=== PATIENT | male | born 1955 | race Caucasian/White ===

== ENCOUNTER 2019-11-23 14:43 | Emergency (ER) | payer MEDICARE, OTHER, SELFPAY ==
--- NOTE | 2019-11-23 14:51 | ED.GENADULT ---
HPI - General Adult General Chief complaint: Upper Respiratory Infection Stated complaint: upper respiratory infection Time Seen by Provider: 11/23/19 14:51 Source: patient Mode of arrival: ambulatory Limitations: no limitations History of Present Illness HPI narrative: 63-year-old male patient presents to the [facility] with complaints of pain to the right side of the face for the past 4 to 5 days. Patient states he has been having some fevers and states that he noticed some swelling to his right cheek and now is gotten worse and causing pain when he tries open his mouth. Patient states he has been doing some sinus rinses thinking it was his sinuses but continues to have worsening pain. Related Data Home Medications Medication Instructions Recorded Confirmed amlodipine [Norvasc] 5 mg PO DAILY 11/23/19 11/23/19 aspirin 81 mg PO DAILY 11/23/19 11/23/19 buspirone 10 mg PO BID 11/23/19 11/23/19 citalopram [Celexa] 20 mg PO DAILY 11/23/19 11/23/19 dulaglutide [Trulicity] 1.5 mg SUBCUT WEEKLY 11/23/19 11/23/19 losartan 100 mg PO DAILY 11/23/19 11/23/19 methylphenidate HCl [Concerta] 36 mg PO BID 11/23/19 11/23/19 metoprolol succinate [Toprol XL] 25 mg PO DAILY 11/23/19 11/23/19 omeprazole magnesium [Prilosec OTC] 20 mg PO DAILY 11/23/19 11/23/19 Allergies Allergy/AdvReac Type Severity Reaction Status Date / Time No Known Allergies Allergy Verified 11/23/19 14:59 Review of Systems Review of Systems: Narrative: CONSTITUTIONAL: Denies fever, chills, or sweats. EYES: Denies visual changes, redness, or discharge. ENT: Denies rhinorrhea, congestion, sore throat, or otalgia. Positive swelling and pain to the right cheek CARDIOVASCULAR: Denies chest pain, palpitations, or edema. RESPIRATORY: Denies cough or dyspnea. GASTROINTESTINAL: Denies abdominal pain, nausea, vomiting, or diarrhea. GENITOURINARY: Denies dysuria or hematuria. SKIN: Denies rash or itching. MUSCULOSKELETAL: Denies back pain, joint pain, or myalgia. NEUROLOGIC: Denies headache, numbness, or weakness. PSYCHIATRIC: Denies anxiety or depression. [facility] Past Medical History Medical History Arthritis CAD (coronary artery disease) Colon cancer Depression Diabetes mellitus type 2 in obese Duplicated ureter, right GERD (gastroesophageal reflux disease) HTN (hypertension) Hydroureter Myocardial infarction (~2008) Obesity ROBERT on CPAP Peripheral neuropathy B/l feet PTSD (post-traumatic stress disorder) Sepsis due to methicillin resistant Staphylococcus aureus (MRSA) Left ankle Sleep apnea Spinal stenosis Tinnitus Surgical History Surgical History H/O lateral meniscus repair of right knee (~2010) H/O vasectomy History of cardiac catheterization History of coronary artery stent placement (~2008) History of photorefractive keratectomy (~2008) Status post right hemicolectomy (03/01/19) Family History Family History Father Diabetes mellitus Hypertension Cerebrovascular accident GERD (gastroesophageal reflux disease) Mother Diabetes mellitus Hypertension Family history of malignant neoplasm of kidney b/l kidneys CAD (coronary artery disease) Other Family history of cardiovascular disease Family history of malignant neoplasm Social History Social History Social History: 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 He lives with his , Shira, whom he designates as POA/surrogate decision maker. His parents also live at home with him. His PCP is Dr. Gonzalez. He wishes to be listed as a Full Code Smoking status: Never smoker Second hand tobacco smoke exposure: No Alcohol intake: current Drinks per week: 7 Substance use: never Substance use type: does not use Other substance usage details: CBD extract Additional occupa
[2019-11-23 14:54] VITALS: BP 162/97; PULSE 89; RESP 18; TEMP 37.5; O2SAT 98
== END 2019-11-23 15:20 | disposition home or self-care (01) ==
PROVIDERS: Emergency Provider Nurse Practitioner Family; PCP Family Medicine
DX: K12.2 Cellulitis and abscess of mouth (principal); M19.90 Unspecified osteoarthritis, unspecified site; I25.10 Atherosclerotic heart disease of native coronary artery without angina pectoris; F32.9 Major depressive disorder, single episode, unspecified; K21.9 Gastro-esophageal reflux disease without esophagitis; I10 Essential (primary) hypertension; I25.2 Old myocardial infarction; G47.33 Obstructive sleep apnea (adult) (pediatric); F43.11 Post-traumatic stress disorder, acute; Z85.038 Personal history of other malignant neoplasm of large intestine; E11.42 Type 2 diabetes mellitus with diabetic polyneuropathy
CPT/HCPCS: 40800; 99213; G0463

== ENCOUNTER 2020-03-18 09:22 | Inpatient (IN) | payer MEDICARE, OTHER, SELFPAY ==
[2020-03-18] VITALS (21 sets, daily range): BP systolic 145–158; BP diastolic 80–102; PULSE 65–106; RESP 10–25; TEMP 36.5–36.9; O2SAT 93–98; BMI 30.2
--- NOTE | ~2020-03-18 | XR_ITS ---
EXAMINATION: XR chest 1V portable EXAM DATE: 03/18/2020 10:31 INDICATION: COVID +, dyspnea; hx of VA with stent placement. TECHNIQUE: Portable AP frontal chest x-ray was obtained. There is no prior study for comparison. FINDINGS: Moderate amount of patchy bilateral ill-defined airspace disease, most likely COVID-19 pneu monia given history provided. Cardiomediastinal silhouette is normal. There is no pneumothorax suspec gomez. There are no pleural effusions. There are mild bony degenerative changes. IMPRESSION: Moderate amount of bilateral acute airspace disease, clinical correlation. Reviewed, dictated and finalized at location B. [employer] [employer] [facility] IMPRESSION: Moderate amount of bilateral acute airspace disease, clinical benny elation.
--- NOTE | 2020-03-18 09:21 | ED.SOB ---
HPI - SOB/Dyspnea General Chief Complaint: Shortness of Breath/Dyspnea Stated Complaint: COVID +, SOB Source: patient and EMS Mode of arrival: EMS Limitations: no limitations History of Present Illness HPI Narrative: Patient is a 64-year-old male who presents for evaluation of cough and shortness of breath in the setting of a Covid diagnosis. Patient had positive Covid test results 03/10, with increasing shortness of breath. 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 Patient is denying chest pain, only reporting increased cough and dyspnea. Reports intermittent fever and chills. Related Data Home Medications Medication Instructions Recorded Confirmed amlodipine [Norvasc] 5 mg PO DAILY 11/23/19 11/23/19 aspirin 81 mg PO DAILY 11/23/19 11/23/19 buspirone 10 mg PO BID 11/23/19 11/23/19 citalopram [Celexa] 20 mg PO DAILY 11/23/19 11/23/19 dulaglutide [Trulicity] 1.5 mg SUBCUT WEEKLY 11/23/19 11/23/19 losartan 100 mg PO DAILY 11/23/19 11/23/19 methylphenidate HCl [Concerta] 36 mg PO BID 11/23/19 11/23/19 metoprolol succinate [Toprol XL] 25 mg PO DAILY 11/23/19 11/23/19 omeprazole magnesium [Prilosec OTC] 20 mg PO DAILY 11/23/19 11/23/19 Allergies Allergy/AdvReac Type Severity Reaction Status Date / Time No Known Allergies Allergy Verified 03/18/20 09:32 Review of Systems Review of Systems: Narrative: CONSTITUTIONAL: Reports intermittent fever and chills EYES: Denies visual changes, redness, or discharge. ENT: Denies rhinorrhea, congestion, sore throat, or otalgia. CARDIOVASCULAR: Denies chest pain, palpitations, or edema. RESPIRATORY: Reports cough and shortness of breath GASTROINTESTINAL: Denies abdominal pain, nausea, vomiting, or diarrhea. GENITOURINARY: Denies dysuria or hematuria. SKIN: Denies rash or itching. MUSCULOSKELETAL: Denies back pain, reports joint pain and myalgias NEUROLOGIC: Denies headache, numbness, or weakness. [facility] Past Medical History Medical History (Updated 03/18/20 @ 11:59 by Lala Meraz MD) Arthritis CAD (coronary artery disease) Colon cancer Depression Diabetes mellitus type 2 in obese Duplicated ureter, right GERD (gastroesophageal reflux disease) HTN (hypertension) Hydroureter Myocardial infarction (~2008) Obesity ROBERT on CPAP Peripheral neuropathy B/l feet PTSD (post-traumatic stress disorder) Sepsis due to methicillin resistant Staphylococcus aureus (MRSA) Left ankle Sleep apnea Spinal stenosis Tinnitus Surgical History Surgical History H/O lateral meniscus repair of right knee (~2010) H/O vasectomy History of cardiac catheterization History of coronary artery stent placement (~2008) History of photorefractive keratectomy (~2008) Status post right hemicolectomy (03/01/19) Family History Family History Father Diabetes mellitus Hypertension Cerebrovascular accident GERD (gastroesophageal reflux disease) Mother Diabetes mellitus Hypertension Family history of malignant neoplasm of kidney b/l kidneys CAD (coronary artery disease) Other Family history of cardiovascular disease Family history of malignant neoplasm Social History Social History Social History: 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 He lives with his , Shira, whom he designates as POA/surrogate decision maker. His parents also live at home with him. His PCP is Dr. Gonzalez. 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
--- NOTE | 2020-03-18 09:28 | ECG_ITS ---
Measurements Intervals [place] Rate: 89 P: 42 ND: 170 QRS: 5 QRSD: 146 T: 46 QT: 395 QTc: 481 Interpretive Statements SINUS RHYTHM RIGHT BUNDLE BRANCH BLOCK CONSIDER INFERIOR INFARCT, AGE INDETERMINATE ABNORMAL ECG Electronically Signed On 03-18-2020 10:24:10 DIRECTOR OF MARKET INTELLIGENCE by Mekhi Rosado D.O.
[2020-03-18 10:08] LABS: Alveolar/Arterial O2 Gradient 46.3 mmHg; Base Excess ABG -2.2 mEq/l (+/-2.0); Carboxyhemoglobin 1.9 % THb (0-2.0); Fractional Inspired Oxygen 21 %; Methemoglobin ABG 0.3 %THb (0-1.5); Oxygen Content ABG 17.9 %vol (16.0-22.0); Oxygen Saturation ABG 91.3 % (95.0-100.0); Oxyhemoglobin 89.5 % THb (90.0-100.0); PCO2 ABG 36.2 mmHg (35.0-45.0); PO2 ABG 60.1 mmHg (80.0-100.0); PO2 FiO2 Ratio Arterial Blood 2.86 %; Reduced Hemoglobin 8.3 %THb (0-5.0); Total Hemoglobin 14.2 g/dL (12.0-18.0); pH ABG 7.402 (7.350-7.450)
[2020-03-18 10:09] LABS: Device ROOM AIR; Modified Allen's Test Pass; Site Drawn LEFT RADIAL
[2020-03-18] MEDS: SODIUM CHLORIDE 0.9% IV 500 ML 999 ML IV CONT (10:14)
[2020-03-18] MEDS: ONDANSETRON INJ 4 MG/2 ML VIAL IV PUSH (10:14)
[2020-03-18 10:36] LABS: Basophils Percent Auto 0.2 % (0.2-1.2); Eosinophils Percent Auto 0.4 % (0-4.4); Hematocrit 38.3 % (42.0-52.0); Hemoglobin 13.6 g/dL (14.0-18.0); Immature Granulocyte Absolute 0.05 K/mm3 (0.00-0.031); Immature Granulocyte Percent A 0.6 % (0-0.5); Lymphocytes Absolute Auto 4.05 K/mm3 (0.9-3.2); Lymphocytes Percent Auto 45.4 % (18.3-44.2); Mean Corpuscular HGB Conc 35.5 g/dl (32-36); Mean Corpuscular Hemoglobin 31.6 pg (26-34); Mean Corpuscular Volume 88.9 fl (80-100); Mean Platelet Volume 9.5 fl (7.4-10.4); Monocytes Absolute Auto 0.2 K/mm3 (0.1-0.6); Monocytes Percent Auto 1.8 % (2.6-8.5); Neutrophils Absolute Auto 4.6 K/mm3 (1.3-6.7); Neutrophils Percent Auto 51.6 % (45.5-73.1); Platelet Count Result 180 k/mm3 (150-375); Red Blood Count 4.31 M/mm3 (4.6-6.20); Red Cell Distribution Width 12.9 % (11.5-14.5); White Blood Count 8.9 K/mm3 (4.5-10.0)
[2020-03-18 10:45] LABS: INR 0.9; Prothrombin Time 13.2 Seconds (11.1-14.7)
[2020-03-18 10:46] LABS: Partial Thromboplastin Time 30.3 SECONDS (22.3-36.8)
[2020-03-18 10:59] LABS: Troponin I < 0.012 ng/mL (0.000-0.034)
[2020-03-18 11:29] LABS: Add Urine Microscopic? YES; Appearance Urine Clear (Clear); Bilirubin Urine Negative (Negative); Blood Urine Negative (Negative); Color Urine Yellow (Yellow); Glucose Urine UA 3+ mg/dL (Negative); Ketones Urine Trace mg/dL (Negative); Leukocyte Esterase Ur Negative LEU/UL (Negative); Mucus Urine Rare /lpf; Nitrate Urine Negative (Negative); Protein Urine 2+ mg/dL (Negative); RBC Urine 0-2 /hpf (0-2); Urobilinogen Urine Negative mg/dL (<2.0); WBC Urine 0-3 /hpf
[2020-03-18 11:30] LABS: Alanine Aminotransferase 54 U/L (4-50); Albumin Level 3.5 g/dL (3.5-5.1); Alkaline Phosphatase 96 U/L (38-126); Anion Gap 8 mmol/L (8-16); Aspartate Amino Transferase 62 U/L (17-59); Bilirubin,Total 0.8 mg/dL (0.2-1.3); Blood Urea Nitrogen 20 mg/dL (9-20); Calcium 7.4 mg/dL (8.4-10.2); Carbon Dioxide 24 mmol/L (22-30); Chloride 102 mmol/L (98-107); Estimated CRCL calculation 112 ml/min; Estimated Glomerular Filt Rate > 60; Glucose 347 mg/dL (75-110); Lactate Dehydrogenase 705 U/L (313-618); Potassium 3.9 mmol/L (3.4-5.0); Sodium 134 mmol/L (137-145)
[2020-03-18 11:32] LABS: Specific Grav Ur 1.032 (1.001-1.035)
[2020-03-18 12:27] LABS: CRP 13.4 mg/dL (<1.0)
[2020-03-18] MEDS: CALCIUM GLUC 1,000 MG/NS 50 ML 1,000 MG/50 ML BAG 100 MG IVPB (12:27)
--- NOTE | 2020-03-18 13:09 | PM.IMHP ---
H&P: HPI History of Present Illness Date/Time: 03/18/20 13:09 Chief complaint: covid 19,acute hypoxic respiratory failure Narrative: Adan Hudson is a 64 year old male the past medical history of diabetes, hypertension, coronary artery disease, and sleep apnea who presented emergency room for worsening dyspnea on exertion, shortness of breath and fatigue. Patient states he tested positive for COVID on March 10, 2020 after a few days of being symptomatic prior to that. He said he was around a healthcare worker who ended up being positive. His symptoms include diarrhea, shortness of breath, joint pain, and cough. He decided to come into the hospital today because he could not take it anymore and he felt like he was more and more short of breath with less activity. He is now on oxygen and feeling much better. He also had a fever throughout the week but does not have a thermometer. He noticed that his Heart rate was elevated when ambulating while he was short of breath. he denies any chest pain recently or within the last couple months. He sees a client technical professional, who he does not know his name, for routine follow-up after his NV in 2008. He has had no other intervention since then. He has had no swelling in his lower extremities. He denies dysuria, nausea, vomiting, leg swelling or syncope. He recently underwent a stressor as his mother yesterday Review of Systems Review of Systems: All systems reviewed & are unremarkable except as noted in HPI and below PMFSH Past Medical History Medical History (Updated 03/18/20 @ 14:31 by Sarina Sawyer PA-C) Arthritis CAD (coronary artery disease) NV in 2008 Colon cancer with surgical resection in 2019 Depression Diabetes mellitus type 2 in obese Duplicated ureter, right GERD (gastroesophageal reflux disease) HTN (hypertension) Hydroureter Myocardial infarction (~2008) Obesity ROBERT on CPAP Peripheral neuropathy B/l feet PTSD (post-traumatic stress disorder) Sepsis due to methicillin resistant Staphylococcus aureus (MRSA) Left ankle Sleep apnea intolerant to CPAP Spinal stenosis Tinnitus Surgical History Surgical History H/O lateral meniscus repair of right knee (~2010) H/O vasectomy History of cardiac catheterization History of coronary artery stent placement (~2008) History of photorefractive keratectomy (~2008) Status post right hemicolectomy (03/01/19) Family History Family History Father Diabetes mellitus Hypertension Cerebrovascular accident GERD (gastroesophageal reflux disease) Mother Diabetes mellitus Hypertension Family history of malignant neoplasm of kidney b/l kidneys CAD (coronary artery disease) Other Family history of cardiovascular disease Family history of malignant neoplasm Social History Social History (Updated 03/18/20 @ 14:32 by Sarina Sawyer PA-C) Social History: He lives with his , Shira, whom he designates as POA/surrogate decision maker. he does not drink, smoke or do drugs. He takes a low dose of oral THC nightly. His PCP is Dr. Gonzalez. 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
--- NOTE | 2020-03-18 13:26 | ADMGEN ---
This patient, Adan Hudson, was admitted to [facility] Surg Room 319-01. Patient/family oriented to hospital policies and general routines including ID bracelet, bed and alarms, visiting hours, pain management, procedures, bathroom and other care routines, personal items, smoking policy, room service/diet, and visiting hours. Information on how to activate the Rapid Response Team has been discussed. Patient/Family are encouraged to report perceived risks to care and to ask questions if they do not understand what they are told or what they should do.
[2020-03-18 14:39] LABS: Troponin I < 0.012 ng/mL (0.000-0.034)
[2020-03-18 17:16] LABS: Troponin I < 0.012 ng/mL (0.000-0.034)
[2020-03-18] MEDS: ENOXAPARIN 40 MG/0.4 ML SYRINGE SUB-Q (18:36)
[2020-03-18] MEDS: INSULIN ASPART (*BKC) 100 UNITS/ML SUB-Q (18:36)
--- NOTE | 2020-03-18 18:48 | PC.NURSE ---
Pt's blood sugar was elevated, due to pt's tray being delivered, without nursing's knowledge. Pt ate entire tray before his blood sugar was taken. Dr. Caballero notified and an one time order of 10 units of Novolog was ordered and given.
[2020-03-18] MEDS: INSULIN ASPART (*BKC) 100 UNITS/ML 10 UNITS SUB-Q ×2 (19:00→22:04)
[2020-03-18] MEDS: busPIRone HCL 10 MG TABLET PO (20:10)
[2020-03-18 21:07] LABS: Glucose Point of Care 440 (65-105)
[2020-03-18 21:09] LABS: Glucose Point of Care 442 (65-105)
[2020-03-18] MEDS: IBUPROFEN 400 MG TABLET 800 MG PO (21:34)
[2020-03-19] VITALS (13 sets, daily range): BP systolic 134–158; BP diastolic 70–99; PULSE 55–102; RESP 16–22; TEMP 36.2–37.2; O2SAT 87–100
[2020-03-19 08:05] LABS: Hematocrit 42.6 % (42.0-52.0); Hemoglobin 14.5 g/dL (14.0-18.0); Mean Corpuscular Volume 91.2 fl (80-100); Mean Platelet Volume 9.7 fl (7.4-10.4); Platelet Count Result 250 k/mm3 (150-375); Red Blood Count 4.67 M/mm3 (4.6-6.20); Red Cell Distribution Width 12.6 % (11.5-14.5)
[2020-03-19 08:11] LABS: Alanine Aminotransferase 50 U/L (4-50); Alkaline Phosphatase 99 U/L (38-126); Anion Gap 9 mmol/L (8-16); Aspartate Amino Transferase 41 U/L (17-59); Bilirubin,Total 0.7 mg/dL (0.2-1.3); Blood Urea Nitrogen 26 mg/dL (9-20); Calcium 8.8 mg/dL (8.4-10.2); Carbon Dioxide 27 mmol/L (22-30); Chloride 106 mmol/L (98-107); Estimated CRCL calculation 87 ml/min; Estimated Glomerular Filt Rate > 60; Glucose 372 mg/dL (75-110); Potassium 4.2 mmol/L (3.4-5.0); Sodium 142 mmol/L (137-145)
[2020-03-19 08:51] LABS: Hepatitis B Surface Antigen Negative (Negative)
[2020-03-19 08:57] LABS: HAV RESULT Negative (Negative); Hepatitis B Core IgM Result Negative (Negative)
[2020-03-19 09:09] LABS: Hepatitis C Virus Antibody Negative (Negative)
[2020-03-19 10:00] LABS: Glucose Point of Care 349 (65-105)
[2020-03-19] MEDS: DEXAMETHASONE 2 MG TABLET 6 MG PO (11:22)
[2020-03-19] MEDS: ASPIRIN 81 MG ENTERIC TABLET PO (11:23)
[2020-03-19] MEDS: amLODIPine BESYLATE 5 MG TABLET PO (11:23)
[2020-03-19] MEDS: busPIRone HCL 10 MG TABLET PO ×2 (11:23→18:41)
[2020-03-19] MEDS: INSULIN ASPART (*BKC) 100 UNITS/ML SUB-Q ×2 (11:23→13:37)
[2020-03-19] MEDS: ENOXAPARIN 40 MG/0.4 ML SYRINGE SUB-Q (11:24)
[2020-03-19] MEDS: CITALOPRAM HYDROBROMIDE 20 MG TABLET PO (11:24)
[2020-03-19] MEDS: LOSARTAN POTASSIUM 100 MG TABLET PO (11:24)
[2020-03-19] MEDS: METOPROLOL SUCCINATE EXT REL 25 MG TABCR PO (11:28)
[2020-03-19] MEDS: PANTOPRAZOLE 40 MG TABLET PO (11:29)
[2020-03-19 11:31] LABS: Hemoglobin A1C 8.5 % (<5.7)
[2020-03-19] MEDS: IBUPROFEN 400 MG TABLET 800 MG PO (11:43)
[2020-03-19 13:31] LABS: Glucose Point of Care 309 (65-105)
--- NOTE | 2020-03-19 14:30 | PM.IMPN ---
Progress Note: A&P Assessment and Plan (1) Pneumonia due to 2019 novel coronavirus: Code(s): U07.1 - COVID-19; J12.89 - Other viral pneumonia Status: Acute Assessment and Plan: Patient was diagnosed with COVID-19 03/10/20 with symptoms started 03/08/20 -but not much shortness of breath at rest. Await home O2 evaluation, likely discharge tomorrow with home oxygen - slight hypoxemia noted on ABG - patient started on 2 L of oxygen at rest in the ER due to tachypnea although no documentation of hypoxia but improved his work of breathing - chest x-ray shows moderate amount of bilateral acute airspace disease likely viral pneumonia -continue with dexamethasone - continue wean oxygen - no indication for Remdesivir at this time due to the patient's timeline - isolation precautions (2) Acute respiratory failure with hypoxia: Code(s): J96.01 - Acute respiratory failure with hypoxia Status: Acute Assessment and Plan: oxygen use as stated above - continue oxygen for sats less than 90 (3) Hypocalcemia: Code(s): E83.51 - Hypocalcemia Status: Acute Assessment and Plan: hypocalcemia noted on admission but normal today (4) Inverted T wave: Code(s): R94.31 - Abnormal electrocardiogram [ECG] [EKG] Status: Acute Assessment and Plan: noted on EKG - prior EKG in 2019 did not show inverted T-waves -troponin x3 negative, no chest pain overnight - likely strain due to viral illness - continue aspirin -Last cath with stent 2008 -follow-up with cardiology outpatient, may need stress test outpatient (5) Anxiety and depression: Code(s): F41.9 - Anxiety disorder, unspecified; F32.9 - Major depressive disorder, single episode, unspecified Status: Acute Assessment and Plan: chronic, under control - continue Celexa and buspirone (6) HTN (hypertension): Code(s): I10 - Essential (primary) hypertension Status: Acute Assessment and Plan: last blood pressure 155/99 - continue metoprolol, losartan and Norvasc (7) CAD (coronary artery disease): Code(s): I25.10 - Atherosclerotic heart disease of [place] coronary artery without angina pectoris Status: Acute Assessment and Plan: no active chest pain, trend troponins -continue aspirin (8) Diabetes mellitus type 2 in obese: Code(s): E11.69 - Type 2 diabetes mellitus with other specified complication; E66.9 - Obesity, unspecified Status: Acute Assessment and Plan: last glucose 309 -A1c 8.5. Spoke with the patient and plan to start Januvia as well as Lantus while on steroids. Will likely be able to get off the Lantus after the steroids are complete -continue sliding scale insulin - he states his blood sugar is usually around 130s at home - he does not take any medications at home and is diet controlled at this time and has follow-up appointment with his PCP about this next week (9) Transaminitis: Code(s): R74.01 - Elevation of levels of liver transaminase levels Status: Acute Assessment and Plan: chronic according to last year's labs - monitor with daily labs - hepatitis screen negative Time Spent With Patient Time with patient: 25 - 35 minutes Subjective Date/time seen: 03/19/20 14:30 Interval history: Pt is a 64 y/o male here for COVID PNA. Pt was seen today and feels okay at rest but has SOB with any exertion. When walking to the bathroom he feels very SOB but does better at rest. This started with covid and has no hx of this prior. He has no CP with this. Other than the ESPINOSA, he feels okay and thinks he feels better with Decadron. Pt a1c is 8.5 and states he has tried many medications such as metformin and Trulicity and unable to tolerate them. He has lantus at home and plans to take that as well while on decadron Review of Systems Review of Systems: All systems reviewed & a
--- NOTE | 2020-03-19 15:24 | PCRCNOTE ---
Window of time for administration has passed. See next scheduled administration.
--- NOTE | 2020-03-19 16:53 | HOMEO2EVAL ---
Home Oxygen Evaluation RC: Home Oxygen (O2) Evaluation Start: 03/19/20 08:00 Freq: ONCE Status: Active Protocol: RPE Activity Type Activity Date Activity User E-Sign Co-Sign Detail Recorded Client Recorded Date Recorded By Document 03/19/20 15:00 TAWNY [email or web address] 03/19/20 16:53 TAWNY Document 03/19/20 15:05 TAWNY [id number] 03/19/20 16:53 TAWNY Document 03/19/20 15:07 TAWNY [id number] 03/19/20 16:53 TAWNY Document 03/19/20 15:10 TAWNY [id number] 03/19/20 16:53 TAWNY 03/19/20 03/19/20 03/19/20 15:00 15:05 15:07 Home O2 Evaluation Test Phase Resting Resting Exercise Oxygen Delivery Room Air Nasal Cannula Nasal Cannula Oxygen Flow Rate (L/min) 1 1 Pulse Oximetry (90-100 %) 87 L 94 90 Pulse Rate (60-100 beats/min) 101 H Home Oxygen Evaluation Comments Treatment Charges O2 Evaluation 03/19/20 15:10 Home O2 Evaluation Test Phase Resting Oxygen Delivery Nasal Cannula Oxygen Flow Rate (L/min) 1 Pulse Oximetry (90-100 %) 93 Pulse Rate (60-100 beats/min) Home Oxygen Evaluation Comments PT REQUIRES 1 L AT REST AND WITH EXERTION Treatment Charges
--- NOTE | 2020-03-19 16:53 | PCRCNOTE ---
HOME O2 EVAL DONE, PT REQUIRES 1L AT RETS AND WITH EXERTION. PT SOB WITH MILD EXERTION. TANK IN ROOM FOR DISCHARGE HOME. SET UP WITH [facility]. RN AND CHARGE NURSE AWARE.
[2020-03-19 18:17] LABS: Glucose Point of Care > 500 (65-105)
[2020-03-19] MEDS: INSULIN GLARGINE (*BKC) 100 UNITS/ML 10 UNITS SUB-Q (18:42)
[2020-03-19] MEDS: INSULIN ASPART (*BKC) 100 UNITS/ML 10 UNITS SUB-Q (18:52)
[2020-03-19 21:00] LABS: Glucose Point of Care 496 (65-105)
[2020-03-19] MEDS: ALBUTEROL SULFATE NEB 2.5 MG/0.5 ML INH 5 MG INHALATION (21:07)
[2020-03-19] MEDS: IPRATROPIUM BR 0.02% INH SOLN 0.5 MG/2.5 ML VIAL INHALATION (21:08)
[2020-03-19] MEDS: INSULIN ASPART (*BKC) 100 UNITS/ML 12 UNITS SUB-Q (21:27)
[2020-03-19 22:43] LABS: Anion Gap 9 mmol/L (8-16); Blood Urea Nitrogen 27 mg/dL (9-20); Calcium 8.6 mg/dL (8.4-10.2); Carbon Dioxide 25 mmol/L (22-30); Chloride 103 mmol/L (98-107); Estimated CRCL calculation 97 ml/min; Estimated Glomerular Filt Rate > 60; Glucose 452 mg/dL (75-110); Potassium 4.3 mmol/L (3.4-5.0); Sodium 137 mmol/L (137-145)
[2020-03-19 23:06] LABS: Beta-Hydroxybutyrate/Acetoacetate 0.22 mmol/L (0.02-0.27)
[2020-03-20] VITALS (9 sets, daily range): BP systolic 141–171; BP diastolic 71–88; PULSE 53–92; RESP 18–20; TEMP 36.4–37.1; O2SAT 94–98
[2020-03-20 01:11] LABS: Glucose Point of Care 378 (65-105)
[2020-03-20] MEDS: INSULIN ASPART (*BKC) 100 UNITS/ML 7 UNITS SUB-Q (02:04)
[2020-03-20] MEDS: IPRATROPIUM BR 0.02% INH SOLN 0.5 MG/2.5 ML VIAL INHALATION (08:13)
[2020-03-20] MEDS: ALBUTEROL SULFATE NEB 2.5 MG/0.5 ML INH 5 MG INHALATION (08:13)
[2020-03-20 08:56] LABS: Glucose Point of Care 249 (65-105)
[2020-03-20] MEDS: LOSARTAN POTASSIUM 100 MG TABLET PO (10:37)
[2020-03-20] MEDS: DEXAMETHASONE 2 MG TABLET 6 MG PO (10:37)
[2020-03-20] MEDS: CITALOPRAM HYDROBROMIDE 20 MG TABLET PO (10:37)
[2020-03-20] MEDS: METOPROLOL SUCCINATE EXT REL 25 MG TABCR PO (10:38)
[2020-03-20] MEDS: amLODIPine BESYLATE 5 MG TABLET PO (10:38)
[2020-03-20] MEDS: busPIRone HCL 10 MG TABLET PO (10:38)
[2020-03-20] MEDS: ENOXAPARIN 40 MG/0.4 ML SYRINGE SUB-Q (10:38)
[2020-03-20] MEDS: PANTOPRAZOLE 40 MG TABLET PO (10:38)
[2020-03-20] MEDS: ASPIRIN 81 MG ENTERIC TABLET PO (10:38)
[2020-03-20] MEDS: INSULIN ASPART (*BKC) 100 UNITS/ML SUB-Q ×2 (10:39→13:02)
[2020-03-20] MEDS: IBUPROFEN 400 MG TABLET 800 MG PO (10:40)
--- NOTE | 2020-03-20 11:39 | PM.DS ---
DS: Admitting Diagnosis Admitting Diagnosis Admitting Diagnosis: covid 19,acute hypoxic respiratory failure DS: Discharge Diagnosis Discharge Diagnosis (1) Pneumonia due to 2019 novel coronavirus: Code(s): U07.1 - COVID-19; J12.89 - Other viral pneumonia Status: Acute Assessment and Plan: Patient was diagnosed with COVID-19 03/10/20 with symptoms started 03/08/20 -ESPINOSA but not much shortness of breath at rest. -Requires 1L of o2 at home. Pt feeling much better on this - slight hypoxemia noted on ABG - chest x-ray shows moderate amount of bilateral acute airspace disease likely viral pneumonia -continue with dexamethasone at home - no indication for Remdesivir at this time due to the patient's timeline - isolation precautions (2) Acute respiratory failure with hypoxia: Code(s): J96.01 - Acute respiratory failure with hypoxia Status: Acute Assessment and Plan: oxygen use as stated above (3) Hypocalcemia: Code(s): E83.51 - Hypocalcemia Status: Acute Assessment and Plan: hypocalcemia noted on admission but normal today (4) Inverted T wave: Code(s): R94.31 - Abnormal electrocardiogram [ECG] [EKG] Status: Acute Assessment and Plan: noted on EKG - prior EKG in 2019 did not show inverted T-waves -troponin x3 negative, no chest pain overnight - likely strain due to viral illness - continue aspirin -Last cath with stent 2008 -follow-up with cardiology outpatient, may need stress test outpatient. I spoke with pt about this (5) Anxiety and depression: Code(s): F41.9 - Anxiety disorder, unspecified; F32.9 - Major depressive disorder, single episode, unspecified Status: Acute Assessment and Plan: chronic, under control - continue Celexa and buspirone (6) HTN (hypertension): Code(s): I10 - Essential (primary) hypertension Status: Acute Assessment and Plan: last blood pressure 141/72 - continue metoprolol, losartan and Norvasc (7) CAD (coronary artery disease): Code(s): I25.10 - Atherosclerotic heart disease of [place] coronary artery without angina pectoris Status: Acute Assessment and Plan: no active chest pain, trend troponins -continue aspirin (8) Diabetes mellitus type 2 in obese: Code(s): E11.69 - Type 2 diabetes mellitus with other specified complication; E66.9 - Obesity, unspecified Status: Acute Assessment and Plan: last glucose 304 -A1c 8.5. Spoke with the patient and plan to start Januvia as well as Lantus while on steroids. Will likely be able to get off the Lantus after the steroids are complete -continue sliding scale insulin at home as well - he states his blood sugar is usually around 130s at home - he does not take any medications at home and is diet controlled at this time and has follow-up appointment with his PCP about this next week (9) Transaminitis: Code(s): R74.01 - Elevation of levels of liver transaminase levels Status: Acute Assessment and Plan: chronic according to last year's labs - hepatitis screen negative DS: Summary Hospital Course Reason for hospitalization: COVID-19 Hospital Course: Patient is a 64-year-old male who has been previously diagnosed with COVID-19 who has a history of diabetes who presented emergency room for worsening shortness of breath, dyspnea on exertion and overall not doing well. Vitals in the ER were stable and he was on room air. White blood cell count 8.9, hemoglobin 13.6, hematocrit 38.2, glucose 180. BMP within normal limits with exception of random glucose 347. Chest x-ray showed moderate amount of bilateral acute airspace disease. EKG reviewed which showed chronic changes however T-wave inversions were noted which were new. Patient was admitted to hospitalist service and started on oxygen therapy as well as dexamethasone. His troponins were tr
[2020-03-20 12:22] LABS: Glucose Point of Care 304 (65-105)
--- NOTE | 2020-03-20 15:18 | PC.NURSE ---
IV removed from left forearm at 1345, intact, without difficulty, no c/o verbalized
== END 2020-03-20 14:00 | disposition home or self-care (01) | DRG 177 ==
LOC: ANHED 11:55 → ANH3MEDSUR 12:10
PROVIDERS: Family Medicine; Physician Assistant; Admitting Provider Internal Medicine; Emergency Provider Emergency Medicine; PCP Family Medicine; Visit Provider Internal Medicine
DX: U07.1 COVID-19 (principal); J12.89 Other viral pneumonia; J96.01 Acute respiratory failure with hypoxia; E83.51 Hypocalcemia; R94.31 Abnormal electrocardiogram [ECG] [EKG]; F41.9 Anxiety disorder, unspecified; F32.9 Major depressive disorder, single episode, unspecified; I10 Essential (primary) hypertension; I25.10 Atherosclerotic heart disease of native coronary artery without angina pectoris; E11.42 Type 2 diabetes mellitus with diabetic polyneuropathy; E11.69 Type 2 diabetes mellitus with other specified complication; E66.9 Obesity, unspecified; Z68.30 Body mass index [BMI] 30.0-30.9, adult; G47.33 Obstructive sleep apnea (adult) (pediatric); R74.01 Elevation of levels of liver transaminase levels; Z79.82 Long term (current) use of aspirin; Z79.899 Other long term (current) drug therapy; Z85.038 Personal history of other malignant neoplasm of large intestine; Z90.49 Acquired absence of other specified parts of digestive tract; Z95.5 Presence of coronary angioplasty implant and graft
CPT/HCPCS: 36415; 36600; 71045; 80048; 80053; 80074; 80076; 81001; 82010; 82375; 82728; 82805; 83036; 83050; 83615; 84484; 85025; 85027; 85610; 85730; 86140; 93005; 94618; 94640; 96361; 96365; 96367; 96372; 96375; 99291; A9270; G0378; J0131; J0610; J1100; J1650; J1815; J2405; J7040; J8540

== ENCOUNTER 2020-05-04 02:25 | Outpatient (CLI) | payer MEDICARE, OTHER, SELFPAY ==
[2020-05-04 19:32] LABS: SARS-CoV-2 RNA PCR Negative
== END 2020-05-04 02:26 | disposition home or self-care (01) ==
LOC: ANHCOVIDDT 02:25
PROVIDERS: PCP Family Medicine; Visit Provider Internal Medicine Gastroenterology
DX: Z01.812 Encounter for preprocedural laboratory examination (principal); Z20.822 Contact with and (suspected) exposure to COVID-19
CPT/HCPCS: C9803; U0003

== ENCOUNTER 2020-05-08 02:32 | Day surgery (SDC) | payer MEDICARE, OTHER, SELFPAY ==
[2020-05-08 10:47] VITALS: BP 147/98; PULSE 97; RESP 20; TEMP 36.3; O2SAT 99; BMI 30.2
[2020-05-08] MEDS: LACTATED RINGERS 1,000 ML 150 ML IV CONT (10:58)
[2020-05-08 11:14] LABS: Glucose Point of Care 215 (65-105)
--- NOTE | 2020-05-08 11:42 | WPDANESEPPF ---
Anes - Initial Pre Proc Eval Procedure: Operation Date: 05/08/20 12:00 Proposed Procedures p Screening Colonoscopy - Javi Frye DO Date/Time: 05/08/20 11:42 Surgeon: Javi Frye DO Pre Op Diagnosis: Hx Of Colon CA Patient Data Age: 64 Gender: M Height: 5 ft 10 in Weight: 95.7 kg Last Vital Signs Temp 97.4 F L 05/08/20 10:47 Pulse 97 05/08/20 10:47 Resp 20 05/08/20 10:47 BP 147/98 H 05/08/20 10:47 Pulse Ox 99 05/08/20 10:47 Allergies Allergy/AdvReac Type Severity Reaction Status Date / Time No Known Allergies Allergy Verified 05/08/20 10:45 Home Medications Medication Instructions Recorded Confirmed Type amlodipine [Norvasc] 5 mg PO DAILY 11/23/19 04/30/20 History aspirin 81 mg PO DAILY 11/23/19 04/30/20 History citalopram [Celexa] 20 mg PO DAILY 11/23/19 04/30/20 History losartan 100 mg PO DAILY 11/23/19 04/30/20 History methylphenidate HCl [Concerta] 72 mg PO DAILY 11/23/19 04/30/20 History metoprolol succinate [Toprol XL] 25 mg PO HS 11/23/19 04/30/20 History omeprazole magnesium [Prilosec OTC] 20 mg PO DAILY 11/23/19 04/30/20 History ibuprofen 800 mg PO BID 03/18/20 04/30/20 History insulin syringe-needle U-100 [BD #1 pkg 03/20/20 Rx Veo Insulin Syringe UF] insulin syringe-needle U-100 [BD #1 pkg 03/20/20 Rx Veo Insulin Syringe UF] buspirone 15 mg PO DAILY 04/30/20 04/30/20 History insulin glargine [Lantus U-100 50 unit SUBCUT BID 04/30/20 04/30/20 History Insulin] omega-3 acid ethyl esters 2 cap PO BID 04/30/20 04/30/20 History Laboratory Tests 05/08/20 10:52 POC Capillary Glucose 215 mg/dl H mg/dl (65-105) Patient hx anesthesia problems: none Family hx anesthesia problems: none PMFSH Past Medical History Medical History (Updated 03/18/20 @ 14:31 by Sarina Sawyer PA-C) Arthritis CAD (coronary artery disease) [place] in 2008 Colon cancer with surgical resection in 2019 Depression Diabetes mellitus type 2 in obese Duplicated ureter, right GERD (gastroesophageal reflux disease) HTN (hypertension) Hydroureter Myocardial infarction (~2008) Obesity ROBERT on CPAP Peripheral neuropathy B/l feet PTSD (post-traumatic stress disorder) Sepsis due to methicillin resistant Staphylococcus aureus (MRSA) Left ankle Sleep apnea intolerant to CPAP Spinal stenosis Tinnitus Surgical History Surgical History H/O lateral meniscus repair of right knee (~2010) H/O vasectomy History of cardiac catheterization History of coronary artery stent placement (~2008) History of photorefractive keratectomy (~2008) Status post right hemicolectomy (03/01/19) Family History Family History Father Diabetes mellitus Hypertension Cerebrovascular accident GERD (gastroesophageal reflux disease) Mother Diabetes mellitus Hypertension Family history of malignant neoplasm of kidney b/l kidneys CAD (coronary artery disease) Other Family history of cardiovascular disease Family history of malignant neoplasm Social History Social History (Updated 03/18/20 @ 14:32 by Sarina Sawyer PA-C) Social History: He lives with his , Shira, whom he designates as POA/surrogate decision maker. he does not drink, smoke or do drugs. He takes a low dose of oral THC nightly. His PCP is Dr. Gonzalez. 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
--- NOTE | 2020-05-08 12:14 | PM.IMHP ---
H&P: HPI History of Present Illness Date/Time: 05/08/20 12:14 Chief Complaint: Reason for visit is colonoscopy. Narrative: Reason for visit is colonoscopy. This very pleasant gentleman seen in consultation at request primary physician. Impression: History of colorectal cancer and multiple adenomatous polyps. He is status post colectomy. Per past medical history. Recommendation: Colonoscopy. History: This very pleasant gentleman has a history of multiple adenomatous colon polyps. He had a large polyp with adenocarcinoma. Subsequently underwent a transverse colectomy. He is here for follow-up colonoscopy for screening and surveillance. Does have occasional loose stools improved with yogurt. Physical examination: General: very pleasant patient in no acute distress. HEENT: Head was normocephalic sclerae is clear mouth without masses neck was supple. Heart: Rate rhythm regular without S3 or S4. Lungs: CTA. Abdomen: Soft with no guarding or rigidity. Bowel sounds were active. Neurologic: Cranial nerves 2 through 12 intact. No focal defects. No clonus. Musculoskeletal system: Revealed no joint tenderness or swelling no muscle atrophy. Extremities: Reveal no significant edema. Skin: Warm and dry with normal turgor. Mental status: intact. Patient is alert and oriented. Review of Systems Review of Systems: All systems reviewed & are unremarkable except as noted in HPI and below PMFSH Past Medical History Medical History (Updated 05/08/20 @ 12:14 by Javi Frye DO) Arthritis CAD (coronary artery disease) [place] in 2008 Colon cancer with surgical resection in 2019 Depression Diabetes mellitus type 2 in obese GERD (gastroesophageal reflux disease) HTN (hypertension) Hydroureter Myocardial infarction (~2008) Obesity ROBERT on CPAP Peripheral neuropathy B/l feet PTSD (post-traumatic stress disorder) Sepsis due to methicillin resistant Staphylococcus aureus (MRSA) Left ankle Sleep apnea intolerant to CPAP Spinal stenosis Surgical History Surgical History H/O lateral meniscus repair of right knee (~2010) H/O vasectomy History of cardiac catheterization History of coronary artery stent placement (~2008) History of photorefractive keratectomy (~2008) Status post right hemicolectomy (03/01/19) Family History Family History Father Diabetes mellitus Hypertension Cerebrovascular accident GERD (gastroesophageal reflux disease) Mother Diabetes mellitus Hypertension Family history of malignant neoplasm of kidney b/l kidneys CAD (coronary artery disease) Other Family history of cardiovascular disease Family history of malignant neoplasm Social History Social History (Updated 03/18/20 @ 14:32 by Sarina Sawyer PA-C) Social History: He lives with his , Shira, whom he designates as POA/surrogate decision maker. he does not drink, smoke or do drugs. He takes a low dose of oral THC nightly. His PCP is Dr. Gonzalez. 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
[2020-05-08 12:32] VITALS: BP 115/79; PULSE 80; RESP 18; O2SAT 97
[2020-05-08 12:42] VITALS: BP 145/90; PULSE 78; RESP 15; O2SAT 98
[2020-05-08 12:52] VITALS: BP 156/106; PULSE 80; RESP 17; O2SAT 97
[2020-05-08 13:06] LABS: Glucose Point of Care 184 (65-105)
== END 2020-05-08 13:05 | disposition home or self-care (01) ==
PROVIDERS: PCP Family Medicine; Visit Provider Internal Medicine Gastroenterology
PROC: 0DJD8ZZ Inspection of Lower Intestinal Tract, Via Natural or Artificial Opening Endoscopic (ICD-10-PCS; CPT 45378; principal; 2020-05-08 12:00)
DX: Z12.11 Encounter for screening for malignant neoplasm of colon (principal); K63.5 Polyp of colon; K57.30 Diverticulosis of large intestine without perforation or abscess without bleeding; K64.8 Other hemorrhoids; Z85.038 Personal history of other malignant neoplasm of large intestine; Z98.0 Intestinal bypass and anastomosis status; Z90.49 Acquired absence of other specified parts of digestive tract; E11.42 Type 2 diabetes mellitus with diabetic polyneuropathy; I25.10 Atherosclerotic heart disease of native coronary artery without angina pectoris; I10 Essential (primary) hypertension; I25.2 Old myocardial infarction; G47.33 Obstructive sleep apnea (adult) (pediatric); F32.9 Major depressive disorder, single episode, unspecified; F43.10 Post-traumatic stress disorder, unspecified; Q62.5 Duplication of ureter; Z86.14 Personal history of Methicillin resistant Staphylococcus aureus infection; Z79.82 Long term (current) use of aspirin; Z79.4 Long term (current) use of insulin
CPT/HCPCS: 45380; 88305; J2001; J2704; J7120

== ENCOUNTER → 2020-06-21 09:45 | Outpatient (CLI) | payer MEDICARE, OTHER, SELFPAY ==
--- NOTE | ~2020-06-21 | CT_ITS ---
EXAMINATION: CT abdomen wo con EXAM DATE: 06/21/2020 10:05 INDICATION: K43.2 - Incisional hernia without obstruction or gangrene. TECHNIQUE: Spiral CT of the abdomen was performed without contrast. Axial, coronal and sagittal laura ges were reviewed. The dose-length product (DLP) for this examination was 756.33 mGy-cm. The exposu re was tailored according to patient size (auto mA exposure control), and iterative reconstruction (A SIR) was used as additional dose reduction technique. Comparison is made to prior examination from . FINDINGS: The liver, spleen, adrenal glands and pancreas are unremarkable. Gallbladder is unremarkab le. No biliary obstruction. There is moderate right hydroureteronephrosis, finding was present on p revious examination. No nephrolithiasis. There is no retroperitoneal lymphadenopathy. There is kimble praumbilical abdominal wall dehiscence. There is a small left periumbilical fat-containing hernia, fi nding indicated on axial image 67. Status post right hemicolectomy. There is small sliding gastroesophageal hiatal hernia. There is ex pected amount of colonic stool. No free intraperitoneal gas. The heart is normal in size. There are no pericardial or pleural effusions. The lung bases are unremarkable. Mild to moderate thoracol umbar levoscoliosis. There are no osteoblastic or osteolytic lesions identified. IMPRESSION: 1. Midline abdominal wall dehiscence and small fat-containing left periumbilical fat-containing nehal ia. 2. Small hiatal hernia. 3. Chronic moderate right hydronephrosis. Reviewed, dictated and finalized at location B. [facility] IMPRESSION: 1. Midline abdominal wall dehiscence and small fat-containing left periumbilic al fat-containing hernia. 2. Small hiatal hernia. 3. Chronic moderate right hydronephrosis.
== END ==
PROVIDERS: PCP Family Medicine; Visit Provider Surgery
DX: K43.2 Incisional hernia without obstruction or gangrene (principal); K44.9 Diaphragmatic hernia without obstruction or gangrene
CPT/HCPCS: 74150

== ENCOUNTER → 2020-07-15 09:13 | Outpatient (CLI) | payer MEDICARE, OTHER, SELFPAY ==
[2020-07-15 20:24] LABS: SARS-CoV-2 RNA PCR Negative
== END ==
PROVIDERS: PCP Family Medicine; Visit Provider Surgery
DX: Z01.812 Encounter for preprocedural laboratory examination (principal); Z20.822 Contact with and (suspected) exposure to COVID-19
CPT/HCPCS: C9803; U0003; U0005

== ENCOUNTER 2020-07-16 14:41 | Outpatient (CLI) | payer MEDICARE, OTHER, SELFPAY ==
[2020-07-16 16:12] LABS: Anion Gap 7 mmol/L (8-16); Blood Urea Nitrogen 23 mg/dL (9-20); Calcium 9.1 mg/dL (8.4-10.2); Carbon Dioxide 26 mmol/L (22-30); Chloride 109 mmol/L (98-107); Estimated Glomerular Filt Rate > 60; Glucose 158 mg/dL (75-110); Potassium 4.1 mmol/L (3.4-5.0); Sodium 142 mmol/L (137-145)
== END 2020-07-16 14:42 | disposition home or self-care (01) ==
LOC: ANHSURGERY 14:44
PROVIDERS: PCP Family Medicine; Visit Provider Surgery
DX: Z01.812 Encounter for preprocedural laboratory examination (principal); K43.2 Incisional hernia without obstruction or gangrene; E11.69 Type 2 diabetes mellitus with other specified complication
CPT/HCPCS: 36415; 80048; 86850; 86900; 86901

== ENCOUNTER 2020-07-17 02:19 | Day surgery (SDC) | payer MEDICARE, OTHER, SELFPAY ==
[2020-07-15 14:40] VITALS: BMI 31.6
[2020-07-17] VITALS (14 sets, daily range): BP systolic 115–149; BP diastolic 70–79; PULSE 58–91; RESP 12–18; TEMP 36.2–37; O2SAT 95–100; BMI 31.6
[2020-07-17] MEDS: LACTATED RINGERS 1,000 ML 30 ML IV CONT ×2 (07:39→11:49)
[2020-07-17] MEDS: ACETAMINOPHEN 500 MG TABLET 1000 MG PO (07:40)
[2020-07-17 07:44] LABS: Glucose Point of Care 180 (65-105)
[2020-07-17] MEDS: ceFAZolin 2 GM/D5W 50 ML 2 GM/50 ML BAG IVPB (08:10)
--- NOTE | 2020-07-17 08:44 | SUR.PREOP ---
DR PARRA NOTIFIED THAT TORADOL WAS HELD DUE TO PT TAKING IBUPROFEN 800MG THIS MORNING PRIOR TO ARRIVAL
--- NOTE | 2020-07-17 08:52 | WPDANESEPPF ---
Anes - Initial Pre Proc Eval Procedure: Operation Date: 07/17/20 09:00 Proposed Procedures p Laparoscopic Incisional Hernia Repair With Mesh, Davinci Assisted - Laith Wright DO Date/Time: 07/17/20 08:52 Surgeon: Laith Wright DO Pre Op Diagnosis: Incisional Hernia Patient Data Age: 64 Gender: M Height: 5 ft 10 in Weight: 99.8 kg Last Vital Signs Temp 36.4 C 07/17/20 07:46 Pulse 58 L 07/17/20 07:46 Resp 16 07/17/20 07:46 BP 148/73 H 07/17/20 07:46 Pulse Ox 98 07/17/20 07:46 Allergies Allergy/AdvReac Type Severity Reaction Status Date / Time No Known Allergies Allergy Verified 07/17/20 06:53 Home Medications Medication Instructions Recorded Confirmed Type amlodipine [Norvasc] 5 mg PO DAILY 11/23/19 07/17/20 History aspirin 81 mg PO DAILY 11/23/19 07/15/20 History citalopram [Celexa] 20 mg PO DAILY 11/23/19 07/17/20 History losartan 100 mg PO DAILY 11/23/19 07/17/20 History methylphenidate HCl [Concerta] 72 mg PO DAILY 11/23/19 07/17/20 History metoprolol succinate [Toprol XL] 25 mg PO HS 11/23/19 07/17/20 History omeprazole magnesium [Prilosec OTC] 20 mg PO DAILY 11/23/19 07/17/20 History ibuprofen 800 mg PO BID 03/18/20 07/17/20 History insulin syringe-needle U-100 [BD #1 pkg 03/20/20 06/19/20 Rx Veo Insulin Syringe UF] insulin syringe-needle U-100 [BD #1 pkg 03/20/20 06/19/20 Rx Veo Insulin Syringe UF] buspirone 15 mg PO DAILY 04/30/20 07/17/20 History omega-3 acid ethyl esters 2 cap PO BID 04/30/20 07/17/20 History cholecalciferol (vitamin D3) 10 10 mcg PO WEEKLY 06/17/20 07/17/20 History mcg (400 unit) capsule glimepiride 2 mg tablet 2 mg PO QAM 06/17/20 07/17/20 History semaglutide [Ozempic] 0.5 mg SUBCUT WEEKLY 07/15/20 07/17/20 History Laboratory Tests 07/17/20 07:36 POC Capillary Glucose 180 mg/dl H mg/dl (65-105) Patient hx anesthesia problems: none Family hx anesthesia problems: none [facility] Past Medical History Medical History Arthritis CAD (coronary artery disease) [place] in 2008 Colon cancer with surgical resection in 2019 Depression Diabetes mellitus type 2 in obese GERD (gastroesophageal reflux disease) HTN (hypertension) Hydroureter Myocardial infarction (~2008) Obesity ROBERT on CPAP Peripheral neuropathy B/l feet PTSD (post-traumatic stress disorder) Sepsis due to methicillin resistant Staphylococcus aureus (MRSA) Left ankle Sleep apnea intolerant to CPAP Spinal stenosis Surgical History Surgical History H/O lateral meniscus repair of right knee (~2010) H/O vasectomy History of cardiac catheterization History of coronary artery stent placement (~2008) History of photorefractive keratectomy (~2008) Status post right hemicolectomy (03/01/19) Family History Family History Father Diabetes mellitus Hypertension Cerebrovascular accident GERD (gastroesophageal reflux disease) Mother Diabetes mellitus Hypertension Family history of malignant neoplasm of kidney b/l kidneys CAD (coronary artery disease) Tuberculosis Other Family history of cardiovascular disease Family history of malignant neoplasm Social History Social History Social History: He lives with his , Shira, whom he designates as POA/surrogate decision maker. he doesn't smoke or do drugs. He takes a low dose of oral THC nightly. His PCP is Dr. Gonzalez. He wishes to be listed as a Full Code Smoking status: Never smoker Second hand tobacco smoke exposure: No Alcohol intake: current Drinks per week: 14 Substance use: current Substance use type: marijuana Other substance usage details: EDIBLES FOR PAIN CONTROL- LAST USE 1 MONTH AGO Living arrangements: with family Additional occupation/education comments:
--- NOTE | 2020-07-17 09:00 | WPDHPUPDATE1 ---
History and Physical Update Update Date/Time: 07/17/20 09:00 History and Physical has been reviewed, including an updated exam of the patient. There are NO changes in the patient's condition. Risks, benefits, and alternatives have been discussed and questions answered. Patient agrees to proceed with procedure.
--- NOTE | 2020-07-17 09:00 | PM.IMHP ---
H&P: HPI History of Present Illness Date/Time: 07/17/20 09:00 Chief Complaint: Incisional hernia Narrative: This is a 64-year-old man who presents for incisional hernia repair. He had a previous history of right colon cancer and underwent hand assisted laparoscopic right hemicolectomy. He now presents with a hernia at the hand port site just above his umbilicus. Review of Systems Review of Systems: All systems reviewed & are unremarkable except as noted in HPI and below Constitutional: Constitutional: Denies chills, Denies fever(s), Denies headache(s) and Denies weight loss Eyes: Eyes: Denies change in vision ENT: Denies dizziness, Denies headache(s), Denies neck mass and Denies throat swelling Cardiovascular: Cardiovascular: Denies chest pain, Denies lightheadedness and Denies dyspnea Respiratory: Respiratory: Denies cough, Denies dyspnea and Denies wheezing Gastrointestinal: Gastrointestinal: Denies abdominal pain, Denies change in bowel habits, Denies nausea and Denies vomiting Genitourinary: Genitourinary: Denies hematuria and Denies dysuria Musculoskeletal: Musculoskeletal: Reports as per HPI Integumentary/Breasts: Skin/Breast: Reports as per HPI Neurologic: Denies dizziness and Denies headache(s) Allergic/Immunologic: Allergic/Immunologic: Denies throat swelling and Denies wheezing PMFSH Past Medical History Medical History Arthritis CAD (coronary artery disease) [place] in 2008 Colon cancer with surgical resection in 2019 Depression Diabetes mellitus type 2 in obese GERD (gastroesophageal reflux disease) HTN (hypertension) Hydroureter Myocardial infarction (~2008) Obesity ROBERT on CPAP Peripheral neuropathy B/l feet PTSD (post-traumatic stress disorder) Sepsis due to methicillin resistant Staphylococcus aureus (MRSA) Left ankle Sleep apnea intolerant to CPAP Spinal stenosis Surgical History Surgical History H/O lateral meniscus repair of right knee (~2010) H/O vasectomy History of cardiac catheterization History of coronary artery stent placement (~2008) History of photorefractive keratectomy (~2008) Status post right hemicolectomy (03/01/19) Family History Family History Father Diabetes mellitus Hypertension Cerebrovascular accident GERD (gastroesophageal reflux disease) Mother Diabetes mellitus Hypertension Family history of malignant neoplasm of kidney b/l kidneys CAD (coronary artery disease) Tuberculosis Other Family history of cardiovascular disease Family history of malignant neoplasm Social History Social History Social History: He lives with his , Shira, whom he designates as POA/surrogate decision maker. he doesn't smoke or do drugs. He takes a low dose of oral THC nightly. His PCP is Dr. Gonzalez. 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
--- NOTE | 2020-07-17 12:09 | PM.PROC ---
Procedure Note - Detailed Date of procedure: 07/17/20 Pre-op diagnosis: Incisional Hernia Post-op diagnosis: same Procedure performed: Laparoscopic incisional hernia repair with Symbotex mesh, da Aldo assisted Description of procedure: Procedure as well as risks, benefits, and alternatives were discussed with the patient. Written consent was obtained and placed in chart prior to procedure. Patient was brought back to surgical suite. He was placed supine on operating table. Time-out was done to confirm patient and procedure. He was then intubated by the anesthesia department. A bump was placed under his left hip, and the bed was flexed slightly to extend the space between his costal margin and iliac crest. His abdomen was prepped and draped in sterile fashion using chlorhexidine prep. A 5 millimeter incision was made in the left upper quadrant, and a 5 millimeter Optiview trocar was advanced through the abdominal layers under direct visualization. Once inside the abdominal cavity, carbon dioxide insufflation was used to create a pneumoperitoneum. His abdomen was inspected. An 8 millimeter incision was made in the left lower quadrant, and an 8 millimeter robotic trocar was placed under direct visualization. Another 8 millimeter incision was made in the left lateral abdomen, and an 8 millimeter robotic trocar was placed under direct visualization. Exparel was infiltrated along the lateral abdominal pierce to perform a transversus abdominis plane block bilaterally. The 5 millimeter port was removed, the incision was extended to 12 millimeters, and a 12 millimeter air seal port was placed under direct visualization. A Kenroy-Wong cone was also used to place an 0-Vicryl simple interrupted suture at this trocar site. The robotic arms were brought up to the patient's bedside and secured to the ports. The camera and instruments were inserted, and I then moved over to the robotic console and took control of the camera and instruments. After careful thorough inspection of the abdominal cavity, I began my dissection at the hernia. The falciform ligament and preperitoneal fat from around the hernia defect was taken down to about 15 cm cephalad to the edge of the hernia defect using scissors with electrocautery. I then measured the hernia size. The hernia measured 7 cm x 7 cm. The fascia was closed using 1-Stratafix running suture in a vertical fashion starting above and below defect and running to the midline and overlapping. The patient also did have about a 4 cm diastasis just superior to the hernia defect it was also closed with the running suture. A 15 cm x 20 cm Symbotex mesh was then placed within the abdominal cavity. This was oriented vertically with the mesh centered on the hernia defect. The mesh was then secured around the perimeter to the abdominal wall using 2 0 V lock running absorbable suture. The repair was inspected, and one final inspection was made around the abdominal cavity. The robotic instruments were then removed, and the robotic arms were disengaged from the trocars. The ports were then removed under direct visualization, the camera was removed, and the pneumoperitoneum was released. The 0 Vicryl transfascial suture was tied down. The skin of the incisions was then approximated using 4-0 Monocryl subcuticular suture. Exofin glue was then applied on top. The patient was then awakened from anesthesia, extubated, and transferred to recovery. Implants: 15cm x 20cm Symbotex Mesh Anesthesia: GETA and local (Exparel) Surgeon: Laith Wright DO Estimated blood loss (mL): 5 Drains: No Pathology: none sent Complications: No immediate complications Condition: stable Disposition: observation Findings: This is a 64-year-old man who presents with an incisional hernia just superior to his umbilicus. He has a previous history of colon cancer and underwent hand assisted laparoscopic right hemicolectomy in 2019. He healed well from the surger
--- NOTE | 2020-07-17 12:56 | SUR.PHASEI ---
1250 sbar faxed floor notified
--- NOTE | 2020-07-17 13:38 | ADMGEN ---
This patient, Adan Hudson, was admitted to 3 [facility] Surg Room 300-01. Patient/family oriented to hospital policies and general routines including ID bracelet, bed and alarms, visiting hours, pain management, procedures, bathroom and other care routines, personal items, smoking policy, room service/diet, and visiting hours. Information on how to activate the Rapid Response Team has been discussed. Patient/Family are encouraged to report perceived risks to care and to ask questions if they do not understand what they are told or what they should do.
[2020-07-17] MEDS: HYDROcodone/acetaminophen (*CRX) 5-325 MG TABLET 1 TAB PO ×2 (13:56→21:07)
[2020-07-17 13:58] LABS: Glucose Point of Care 183 (65-105)
[2020-07-17] MEDS: LOSARTAN POTASSIUM 100 MG TABLET PO (15:24)
[2020-07-17] MEDS: LACTATED RINGERS 1,000 ML 100 ML IV CONT (15:24)
[2020-07-17] MEDS: IBUPROFEN 400 MG TABLET 800 MG PO ×2 (15:25→23:32)
[2020-07-17] MEDS: GLIMEPIRIDE 2 MG TABLET PO (15:25)
[2020-07-17 18:35] LABS: Glucose Point of Care 243 (65-105)
[2020-07-17] MEDS: METOPROLOL SUCCINATE EXT REL 25 MG TABCR PO (21:10)
[2020-07-17 23:45] LABS: Glucose Point of Care 158 (65-105)
[2020-07-18] MEDS: HYDROcodone/acetaminophen (*CRX) 5-325 MG TABLET 1 TAB PO ×2 (01:27→08:26)
[2020-07-18 03:55] VITALS: BP 123/70; PULSE 85; RESP 18; TEMP 36.4; O2SAT 97
[2020-07-18 06:30] LABS: Hematocrit 36.2 % (42.0-52.0); Hemoglobin 12.8 g/dL (14.0-18.0); Mean Corpuscular HGB Conc 35.4 g/dl (32-36); Mean Corpuscular Hemoglobin 30.6 pg (26-34); Mean Corpuscular Volume 86.6 fl (80-100); Mean Platelet Volume 9.5 fl (7.4-10.4); Platelet Count Result 163 k/mm3 (150-375); Red Blood Count 4.18 M/mm3 (4.6-6.20); Red Cell Distribution Width 12.9 % (11.5-14.5); White Blood Count 21.8 K/mm3 (4.5-10.0)
[2020-07-18 06:38] LABS: Anion Gap 7 mmol/L (8-16); Blood Urea Nitrogen 20 mg/dL (9-20); Calcium 8.1 mg/dL (8.4-10.2); Carbon Dioxide 30 mmol/L (22-30); Chloride 102 mmol/L (98-107); Estimated CRCL calculation 99 ml/min; Estimated Glomerular Filt Rate > 60; Glucose 153 mg/dL (75-110); Potassium 3.6 mmol/L (3.4-5.0); Sodium 139 mmol/L (137-145)
[2020-07-18] MEDS: IBUPROFEN 400 MG TABLET 800 MG PO (07:24)
[2020-07-18 08:00] VITALS: BP 127/73; PULSE 57; RESP 18; TEMP 37.1; O2SAT 94
[2020-07-18 08:18] LABS: Glucose Point of Care 148 (65-105)
[2020-07-18] MEDS: PANTOPRAZOLE 40 MG TABLET PO (08:19)
[2020-07-18] MEDS: GLIMEPIRIDE 2 MG TABLET PO (08:19)
[2020-07-18] MEDS: ASPIRIN 81 MG ENTERIC TABLET PO (08:19)
[2020-07-18] MEDS: amLODIPine BESYLATE 5 MG TABLET PO (08:20)
[2020-07-18] MEDS: CITALOPRAM HYDROBROMIDE 20 MG TABLET PO (08:20)
[2020-07-18] MEDS: busPIRone HCL 5 MG TABLET 15 MG PO (08:20)
[2020-07-18] MEDS: polyethylene glycoL 3350 17 GM POWD.PACK PO (08:20)
[2020-07-18] MEDS: LOSARTAN POTASSIUM 100 MG TABLET PO (08:21)
--- NOTE | 2020-07-18 09:21 | WPDANESPN ---
Anes - Prog Note Post-Op Date/Time: 07/18/20 09:21 Cardiovascular status: normal Respiratory status: normal Airway patency: baseline Mental status: baseline Post-Op hydration status: normal Vital Signs: Last Vital Signs Temp 98.7 F 07/18/20 08:00 Pulse 57 L 07/18/20 08:00 Resp 18 07/18/20 08:00 BP 127/73 07/18/20 08:00 Pulse Ox 94 07/18/20 08:00 Pain Score (VAS): 210 I/O: Intake & Output 07/17/20 07/18/20 07/18/20 23:59 07:59 15:59 Intake Total 1300 1500 Output Total 975 750 Balance 325 750 Laboratory Tests 07/18/20 05:33 07/18/20 05:33 07/17/20 07/17/20 07/17/20 11:58 18:31 22:09 WBC RBC Hgb Hct MCV MCH MCHC RDW Plt Count MPV Sodium Potassium Chloride Carbon Dioxide Anion Gap BUN Creatinine Estim Creat Clear Calc Estimated GFR Glucose POC Capillary Glucose 183 H 243 H 158 H Calcium 07/18/20 07/18/20 07/18/20 05:33 05:33 08:11 WBC 21.8 H RBC 4.18 L Hgb 12.8 L Hct 36.2 L MCV 86.6 MCH 30.6 MCHC 35.4 RDW 12.9 Plt Count 163 MPV 9.5 Sodium 139 Potassium 3.6 Chloride 102 Carbon Dioxide 30 Anion Gap 7 L BUN 20 Creatinine 0.80 Estim Creat Clear Calc 99 Estimated GFR > 60 Glucose 153 H POC Capillary Glucose 148 H Calcium 8.1 L Patient Feedback: Patient satisfied with anesthetic care.
--- NOTE | 2020-07-18 10:01 | PM.DS ---
DS: Admitting Diagnosis Admitting Diagnosis Admitting Diagnosis: Incisional hernia without obstruction CAD HTN Diabetes mellitus ROBERT Obesity BMI 31 History colon cancer DS: Discharge Diagnosis Discharge Diagnosis (1) Incisional hernia without mention of obstruction or gangrene: Code(s): K43.2 - Incisional hernia without obstruction or gangrene Status: Acute Assessment and Plan: 07/17/20 Laparoscopic incisional hernia repair with Symbotex mesh, da Aldo assisted by Dr. Wright (2) BMI 31.0-31.9,adult: Code(s): Z68.31 - Body mass index [BMI] 31.0-31.9, adult Status: Acute (3) Diabetes mellitus type 2 in obese: Code(s): E11.69 - Type 2 diabetes mellitus with other specified complication; E66.9 - Obesity, unspecified Status: Acute (4) ROBERT on CPAP: Code(s): G47.33 - Obstructive sleep apnea (adult) (pediatric); Z99.89 - Dependence on other enabling machines and devices Status: Acute (5) CAD (coronary artery disease): Code(s): I25.10 - Atherosclerotic heart disease of [place] coronary artery without angina pectoris Status: Acute (6) HTN (hypertension): Code(s): I10 - Essential (primary) hypertension Status: Acute (7) History of colon cancer: Code(s): Z85.038 - Personal history of other malignant neoplasm of large intestine Status: Acute DS: Summary Hospital Course Reason for hospitalization: This is a 64-year-old man who was seen as an outpatient for evaluation of an incisional hernia. He had a previous history of right colon cancer and underwent hand assisted laparoscopic right hemicolectomy. He was found to have a hernia at the hand port site just above his umbilicus. He then presented yesterday for elective incisional hernia repair by Dr. Wright. Hospital Course: The patient underwent a laparoscopic incisional hernia repair with Symbotex mesh, da Aldo assisted, by Dr. Wright on 07/17/20 and was admitted for observation following surgery. The patient tolerated surgery well without any immediate complications. He was found to have a 7 cm x 7 cm incisional hernia located just superior to the umbilicus with also a 4 cm diastasis rectus just superior to the hernia defect. (See operative note) The patient has been doing well since surgery. Labs this morning were unremarkable, other than some expected post-operative leukocytosis. Patient vital signs are stable and he is tolerating a diet and activity. Voiding without difficulty. Pain is well controlled with oral analgesics. No other complaints at this time. Stable for discharge and instructions discussed with the patient. Status at Discharge Functional status at discharge: independent ambulation Overall status at discharge: patient is progressing back to baseline Time Spent with Patient Time attestation: Total time spent providing and/or coordinating discharge services: Time spent: Less than 30 minutes Exam Const: General: comfortable, no acute distress, alert and awake Orientation/consciousness: patient oriented x3 Resp: Effort & Inspection: normal respiratory effort Auscultation: clear to auscultation bilaterally Cardio: Rate: regular rate Rhythm: regular rhythm GI: Inspection: non-distended and incision (Abdominal incisions clean and dry, glue intact. Slight ridge at midline) GI Palp: Yes Soft to palpation and Yes Tenderness to palpation present (GI) (incisional and at repair) Auscultation: normal bowel sounds Rectal Exam: deferred Skin: General skin exam: normal color Neuro: General: moves all extremities and no focal motor deficits Speech: normal speech Extrem: General: no clubbing, cyanosis or edema and no calf tenderness Psych: Mental Status: mental status grossly normal Insight: Good insight present (Psych) Judgement: Good judgement present (Psych) DS: Data Data Completed and Pending Labs on day of discharge: Labs from last 24 hours 07/18/20 07/18/20 07/18/20 08:11 0
== END 2020-07-18 11:15 | disposition home or self-care (01) ==
LOC: ANHSURGERY 06:40 → ANH3MEDSUR 13:12
PROVIDERS: PCP Family Medicine; Visit Provider Surgery
PROC: (CPT 49654; principal; 2020-07-17 09:00)
DX: K43.2 Incisional hernia without obstruction or gangrene (principal); Z85.038 Personal history of other malignant neoplasm of large intestine; Z90.49 Acquired absence of other specified parts of digestive tract; Z98.0 Intestinal bypass and anastomosis status; I10 Essential (primary) hypertension; I25.10 Atherosclerotic heart disease of native coronary artery without angina pectoris; I25.2 Old myocardial infarction; E11.42 Type 2 diabetes mellitus with diabetic polyneuropathy; K21.9 Gastro-esophageal reflux disease without esophagitis; F32.9 Major depressive disorder, single episode, unspecified; G47.33 Obstructive sleep apnea (adult) (pediatric); F43.11 Post-traumatic stress disorder, acute; E66.9 Obesity, unspecified; Z68.31 Body mass index [BMI] 31.0-31.9, adult; Z95.5 Presence of coronary angioplasty implant and graft; Z79.4 Long term (current) use of insulin; Z79.82 Long term (current) use of aspirin; Z79.84 Long term (current) use of oral hypoglycemic drugs; F12.90 Cannabis use, unspecified, uncomplicated
CPT/HCPCS: 49654; S2900; 36415; 80048; 82948; 85027; A9270; C1781; C9290; J0690; J1100; J2250; J2405; J2704; J2710; J3010; J7030; J7120

== ENCOUNTER 2021-01-10 14:09 | Outpatient (CLI) | payer MEDICARE, OTHER, SELFPAY ==
--- NOTE | ~2021-01-10 | CT_ITS ---
EXAMINATION: CT soft tiss nk chst ab pel w EXAM DATE: 01/10/2021 14:38 INDICATION: B-cell lymphoma. TECHNIQUE: Spiral CT of the neck, chest, abdomen and pelvis was performed following intravenous injec tion of 100 mL Omnipaque 350. Axial, coronal and sagittal images of the neck were reviewed. Axial, coronal and sagittal images of the chest were reviewed. Coronal maximum intensity pixel images of ch est reviewed. Axial, coronal and sagittal images of the abdomen and pelvis were reviewed. The dose- length product (DLP) for this examination was 2085.53 mGy-cm. The exposure was tailored according to patient size (auto mA exposure control), and iterative reconstruction (ASIR) was used as additional dose reduction technique. Comparison is made to prior examination from 03/08/2019, 02/02/2019. FINDINGS: NECK: The thyroid gland is unremarkable. The submandibular and parotid glands are symmetric. Ther e is no cervical lymphadenopathy. There are no masses identified. The airway is unremarkable. P arapharyngeal and pre-glottic fat planes are preserved. The opacified vasculature is patent. The orbits are unremarkable. Visualized sinuses and mastoid air cells are well aerated. There is cerv ical spondylosis. CHEST: Right lower lobe 6 mm noncalcified granuloma unchanged. Several smaller granulomas also uncha nged. There are no pleural or pericardial effusions. Tracheobronchial tree is patent. There is n o mediastinal, hilar or axillary lymphadenopathy. There is no pneumothorax. Heart normal in size. Focal density left anterior descending coronary artery which could be a stent, correlate with hist ory. ABDOMEN PELVIS: The liver, spleen, adrenal glands and pancreas are unremarkable. Gallbladder is unre markable. No biliary obstruction. Kidneys enhance symmetrically. There is severe right-sided hydrou reteronephrosis to the UVJ, could be from ureterocele or congenital narrowing at the UVJ. No obstruct ing stone is identified and no significant interval change. The prostate is unremarkable. The bladd er is unremarkable. There is no retroperitoneal or pelvic lymphadenopathy. There is small to moder ate-sized right inguinal fat-containing hernia. There are no findings to suggest appendicitis. There is small sliding gastroesophageal hiatal hernia . There is expected amount of colonic stool. No free intraperitoneal gas. There are no osteoblas tic or osteolytic lesions identified. IMPRESSION: 1. Stable exam, no lymphadenopathy. 2. Chronic right hydroureteronephrosis could be from ureterocele. Reviewed, dictated and finalized at location B.
[2021-01-10 14:28] LABS: Estimated Glomerular Filt Rate > 60
== END 2021-01-10 14:10 | disposition home or self-care (01) ==
LOC: ANHIMG 14:13
PROVIDERS: PCP Family Medicine; Visit Provider Internal Medicine Hematology & Oncology
DX: C85.10 Unspecified B-cell lymphoma, unspecified site (principal)
CPT/HCPCS: 70491; 71260; 74177; Q9967

== ENCOUNTER 2021-01-21 10:00 | Outpatient (CLI) | payer MEDICARE, OTHER, SELFPAY | END 2021-01-21 10:01 | disposition home or self-care (01) | LOC: ANHLAB 01-29 13:02 | PROVIDERS: PCP Family Medicine; Visit Provider Internal Medicine Hematology & Oncology | DX: C85.10 Unspecified B-cell lymphoma, unspecified site (principal) | CPT/HCPCS: 88365 ==